=== PATIENT | female | born 1990 | race Caucasian/White ===

== ENCOUNTER 2016-07-29 09:41 | Day surgery (SDC) | payer OTHER ==
[~2016-07-29 09:41] MED LIST: DEXAMETHASONE SOD PHOS INJ 10 MG/1 ML VIAL ONE; FENTANYL CITRATE INJ/PF 250 MCG/5 ML AMPULE ONE; MIDAZOLAM 2 MG/2 ML INJ ONE; ONDANSETRON HCL INJ/PF 4 MG/2 ML SDV ONE; PROPOFOL INJ 200 MG/20 ML VIAL IV ONE; SUCCINYLCHOLINE CHLORIDE INJ 200 MG/10 ML VIAL ONE
[2016-07-29] MEDS ORDERED: BUPIVACAINE HCL 0.5%-EPI 1:200000 INJ/PF 30 ML VIAL ONE (11:44)
[2016-07-29] MEDS ORDERED: ONDANSETRON HCL INJ/PF 4 MG/2 ML SDV ONE (13:05)
--- NOTE | 2016-08-03 10:46 | SURGICARE OPERATIVE REPORT E ---
[facility] Operative Report NAME: ABBEY JONES AGE: 25Y DATE OF SURGERY: 07/29/2016 ROOM: PREOPERATIVE DIAGNOSIS: Chronic tonsillitis. POSTOPERATIVE DIAGNOSIS: Chronic tonsillitis. OPERATION: Tonsillectomy, bilateral. SURGEON: JOSHUA CADE D.O. ANESTHESIA: General endotracheal tube. ANESTHESIA STAFF: ISIDRO Nuñez ESTIMATED BLOOD LOSS: 5 mL. FLUIDS: 650 mL. COMPLICATIONS: None. DRAINS: None. SPONGE COUNT: Verified. MATERIALS FORWARDED SPECIMEN: Left and right tonsillar tissue. FINDINGS: 1. The tonsils were noted to be 2+ in size, were endophytic in nature, and were cryptic in appearance. 2. The soft palate was redundant in nature and the uvula was unremarkable in appearance. 3. The patient had a sublingual ring piercing that was removed intraoperatively before the start of the case. 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 The patient was referred for and she complained of a history of chronic tonsillitis symptoms consistent with keratosis pharyngeus over the years. The patient has desired to undergo tonsil surgery over the years to get beyond her tonsil problems. After an extensive discussion with the patient, recommendation and plan was made to proceed with a tonsillectomy. The procedure and all of its risks and complications were all discussed in detail with the patient. She voiced an understanding of the described surgical plan, agreed to proceed, and consent was obtained. DICTATING PHYSICIAN: JOSHUA CADE D.O. [id number] PHY#: [id number] ID: [id number] JOB#: [id number] ACCT: [id number] cc:JOSHUA CADE D.O. >
== END 2016-07-29 14:03 | disposition home or self-care (01) ==
LOC: SC 09:41
PROVIDERS: ATTEND Otolaryngology
PROC: 0CTPXZZ Resection of Tonsils, External Approach (ICD-10-PCS; principal; 2016-07-29 10:45)
DX: J35.1 Hypertrophy of tonsils (principal); F17.210 Nicotine dependence, cigarettes, uncomplicated; M19.90 Unspecified osteoarthritis, unspecified site; F90.9 Attention-deficit hyperactivity disorder, unspecified type; F32.9 Major depressive disorder, single episode, unspecified; Z79.1 Long term (current) use of non-steroidal anti-inflammatories (NSAID); Z79.899 Other long term (current) drug therapy
CPT/HCPCS: 88304 ×2; 42826; J2250; J3490; J3010; J0330; J2405; J2704; J1100; 170